=== PATIENT | male | born 1995 | race Caucasian/White ===

== ENCOUNTER 2020-11-29 19:57 | Emergency (ER) | payer OTHER, SELFPAY ==
[2020-11-29 20:37] VITALS: BP 140/82; PULSE 61; RESP 16; TEMP 36.4; O2SAT 98; BMI 32.3
--- NOTE | 2020-11-29 21:45 | ED_ITS ---
HPI - Back Pain/Injury General Chief Complaint: Back Pain/Injury Stated Complaint: Back pain/Work related Time Seen by Provider: 11/29/20 21:45 Source: patient Mode of arrival: ambulatory Limitations: no limitations History of Present Illness HPI Narrative: This is a 25-year-old male with pmhx significant of previous herniated disks and a vertebral fracture that presents to the emergency department with complaints of back pain x1 day. The pain started at work, when he got out of his car and twisted in a weird way. 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 Heavy lifting causes the pain to increase, he states that the pain is worse with movement, better at rest. He states the pain is localized to his lower back and10/10 in severity, and does not radiate. It seems as though he is a poor historian, very vaguely answering questions. He did use chest pain, shortness of breath , fevers, chills, numbness, tingling, pa resthesias, urinary and bladder incontinence. MD elicited complaint: back injury Pertinent past history: prior back pain Timing: constant Severity: moderate Similar Symptoms Previously: Yes Quality: spasming Location: lumbar spine Radiation: none Exacerbating factors: movement and walking Relieving factors: immobilization and supine Context: while lifting and turning/twisting Associated symptoms: denies other symptoms Work related injury: Yes Related Data Previous Rx's Medication Instructions Recorded acetaminophen 500 mg tablet 500 mg PO Q6H PRN 7 Days #14 tab 11/29/20 (Tylenol Extra Strength) cyclobenzaprine 10 mg tablet 10 mg PO Q8H PRN #10 tab 11/29/20 Allergies Allergy/AdvReac Type Severity Reaction Status Date / Time No Known Allergies Allergy Verified 11/29/20 20:40 Review of Systems Review of Systems: Constitutional : No trauma, No Weight loss, No Fever, No Chills, ENT/Mouth : No Hearing loss, No Ear Pain, No Nasal Congestion, No Sinus Pain, No Hoarseness, No sore throat, No Rhinorrhea, No Swallowing Difficulty Cardiovascular : No Chest Pain, No SOB Respiratory : No Cough, No Dyspnea Gastrointestinal : No Nausea, No Vomiting, No Diarrhea, No abdominal Pain, No Hematochezia, No Melena Genitourinary : No Dysuria, No Urinary Frequency, No Hematuria, No Urinary or Bowel Incontinence/retention Musculoskeletal : + Back pain, No neck pain, No joint stiffness, No joint swelling Skin : No Skin Lesions, No rash or signs of infection Neuro : No Weakness, No radiation, No Numbness, No Paresthesias, No headache, no loss of bowel or bladder incontinence, no saddle anesthesia, Focal weakness, No radiation Denies history of IV drug usage. Yes all other systems are reviewed and are negative [facility] Past Medical History Attestation statement: The following information was validated with the patient. Social History Social History Advance Directives: No Advance Directives Information Provided: Yes Physical Exam Vital Signs: Vital Signs: Last Vital Signs Temp 97.6 F 11/29/20 20:37 Pulse 61 11/29/20 20:37 Resp 16 11/29/20 20:37 BP 140/82 H 11/29/20 20:37 Pulse Ox 98 11/29/20 20:37 Body Mass Index 32.3 vital signs have been reviewed as normal and appeared to be correct. Blood pressure slightly elevated 140/82. Heart rate normal. Respiration rate normal. Temperature normal. Oxygen saturation normal. Appearance: Alert. Oriented X3. No acute distress. Head: Normal external exam. Normocephalic. Atraumatic. No [place] signs noted. No raccoon eyes noted Eyes: PERRLA. EOMI. Conjunctiva and sclera normal. Eyelids normal. ENT: EAC normal. TM's Normal. Pharynx normal. Uvula midline. Moist mucous membranes. No trismus noted. No drooling noted. No muffled voice noted. Neck: Normal inspection. Neck supple. FROM. No adenopathy. Thyroid Normal. No meningeal signs. No neck mass noted. CVS: Normal heart rate and rhythm. Heart sound normal. No murmurs noted. Pulses normal throughout. Respiratory: No respiratory distress. Painless inspiration. Breath sounds normal. No wheezes/rales/rhonchi noted. Chest nontender. No accessory muscle usage noted or decreased air movement noted. Abdomen: Soft and nontender. Bowel sounds normal in all 4 quadrants. No distention noted. No organomegaly noted. No visible injury noted. Back: No CVA tenderness. +Full/painful range of motion noted. No obvious deformities, or edema. + Mild para-spinal muscular tenderness from lumbar region to coccyx. + Full/painful ROM in back and lower extremities. 5/5 strength hip extension/flexion, abduction, adduction. +Mild Lumbar pain with hip flexion against resistance. +Straight leg raise test positive on right; Straight leg raise test negative on left; Reflexes normal ankle and knee bilaterally; EHL motor strength normal bilaterally. No rashes/lesion/induration/fluctuance or signs infection noted. Skin: Skin warm and dry. Normal skin color. Normal skin turgor. No rashes/lesions/lacerations noted. Extremities: No lower extremity edema. Extremities exhibit normal range of motion. Extremities nontender. Neuro: Oriented X 3. No motor deficit. No sensory deficit. Reflexes normal. Patient has a normal steady gait. Course Course Course Narrative: This is a 25-year-old male with a past medical history of herniated disc, and a vertebral fracture who presents to the emergency department with a lower back pain increasing over the day. He states when he got to work he got out of his car, and weirdly twisted causing him to have back pain. He tried to push through work, and did some heavy lifting at work about 50 lb worth of heavy lifting, but he states that this made his pain much worse. He states that his job told him to come in to get seen to the emergency department. He denies any trauma to the area. He denies bowel/urinary incontinence, numbness, tingling, weakness, chest pain, shortness of breath, fevers, chills. He is not an IV drug user. Upon physical examination there is a positive straight leg raise on the right- hand side, and tenderness to palpation over the paraspinous muscles in the lumbar and coccyx region. He is neurologically intact and he has no abnormalities with strength or rage of motion to his lower extremities. Based off of patient's physical examination, and history there is no need to do an x-ray of the lower back. He has been advised to follow-up with his PCP, or return to the emergency department with new or worsening symptoms. He will be discharged home with Tylenol for the pain, and cyclobenzaprine and a muscle relaxer. Patient has no questions at this time. Since this is a work related injury, he should follow up with Work connections. He has also been told to follow up with his PCP in case his blood pressure continues to run on the higher end of normal. He should check his blood pressures at home, and they are more than 120/80 he should go to his PCP for hypertension workup. MDM - Back Pain/Injury Medical Records Attestation: I reviewed the patient's medical records. Discharge Plan Discharge Clinical Impression: Strain of lumbar region, Work related injury Patient Disposition: Home, Self-Care Instructions: Muscle Strain (ED), Back Pain (ED) Additional Instructions: Take Tylenol for pain as instructed. You will be prescribed cyclobenzaprine, muscle relaxer. This medication be sleepy please do not take this while driving. It is best to take this medication at night Follow-up with primary care provider, you may need an MRI, herniated discs cannot be seen on x-ray based on the mechanism and the patient's you likely have a lumbar strain meaning a muscle strain Since this is a work related injury follow-up with workman's Comp/ work connection Return to the emergency department with new or worsening symptoms Prescriptions: New acetaminophen [Tylenol Extra Strength] 500 mg tablet 500 mg PO Q6H PRN (Reason: pain) 7 Days Qty: 14 RF: 0 cyclobenzaprine 10 mg tablet 10 mg PO Q8H PRN (Reason: Muscle spasm) Qty: 10 RF: 0 Stand Alone Forms: Work/School Release Print Language: Lebanese
--- NOTE | 2020-11-29 22:28 | PC.NURSE ---
PT AWAKE, ALERT AND ORIENTED X 3. SKIN WARM AND DRY. RESP UNLABORED. DENIES N/V. NEUROS INTACT. EVALUATED BY PA. PLAN IS FOR DC HOME. PT AGREEABLE TO PLAN
== END 2020-11-29 22:34 | disposition home or self-care (01) ==
PROVIDERS: Emergency Provider Emergency Medicine
DX: S39.012A Strain of muscle, fascia and tendon of lower back, initial encounter (principal); X50.1XXA Overexertion from prolonged static or awkward postures, initial encounter; Y93.9 Activity, unspecified; Y92.9 Unspecified place or not applicable; Y99.0 Civilian activity done for income or pay
CPT/HCPCS: 99283